=== PATIENT | female | born 1985 | race Caucasian/White ===

== ENCOUNTER 2019-01-23 05:32 | Day surgery (SDC) | payer MEDICAID ==
[2019-01-23] VITALS (13 sets, daily range): BP systolic 97–146; BP diastolic 52–76; PULSE 56–77; RESP 13–21; Ht 165.1 cm; Wt 77.3 kg
[~2019-01-23] VITALS: Ht 165.1 cm; Wt 77.3 kg
--- NOTE | 2019-01-23 07:30 | PREAC ---
Date/Time of Note Date/Time of Note DATE: 01/23/19 TIME: 07:29 Anesthesia Eval and Record Evaluation Time Pre-Procedure Interview DATE: 01/23/19 TIME: 07:29 Age 33 Sex female NPO: 8 hrs Preoperative diagnosis Request Of BTL Planned procedure Laparoscopic BTL Past Medical History Past Medical History: None Surgery & Anesthesia Issues No known issue Meds Anticoagulation: No Beta Og within 24 hr: No Reason Beta Og not given: Pt. not on B-Og No Active Prescriptions or Reported Meds Meds reviewed: Yes Allergies Coded Allergies: No Known Allergy (Unverified , 01/23/19) Allergies Reviewed: Yes Labs/Studies Labs Reviewed: Reviewed by anesthesiologist test: Negative Studies: ECG (n/a), CXR (n./a) Pre-procedure Exam Last vitals Vital Signs Date Temp Pulse Resp B/P (MAP) Pulse Ox O2 O2 Flow FiO2 Time Delivery Rate 01/23/19 97.4 60 18 117/76 97 Room Air 07:19 (90) Airway: Adequate mouth opening, Adequate thyromental dist Mallampati: Mallampati II Teeth: Normal Lung: Normal Heart: Abnormal ASA Physical Status ASA physical status: 1 Emergency: None Planned Anesthetic General/MAC: ETT Nerve block: TAP (bilateral) Planned Pain Management Single shot nerve block, Parenteral pain med Pre-operative Attestations Prior to commencing anesthesia and surgery, the patient was re-evaluated, there was verification of: *The patient's identity *The results of appropriate recent lab work and preoperative vital signs *The above evaluation not changing prior to induction *Anesthetic plan, risk benefits, alternative and complications discussed with patient/family; questions answered; patient/family understands, accepts and wishes to proceed. WILLIAM ARCE MD Jan 23, 2019 07:30
[2019-01-23] MEDS ORDERED: FENTAnyl 50 MCG/ML VIAL ONE (07:35)
[2019-01-23] MEDS ORDERED: PROPOFOL 20 ML ONE (07:35)
[2019-01-23] MEDS ORDERED: ROCURONIUM 50 MG INJ ONE (07:35)
[2019-01-23] MEDS ORDERED: MIDAZOLAM 1 MG/ML 2 ML INJ ONE (07:35)
[2019-01-23] MEDS ORDERED: ROPIVACAINE 0.5 % 30 ML VIAL ONE (07:35)
[2019-01-23] MEDS ORDERED: METOCLOPRAMIDE 10 MG INJ ONE (08:23)
[2019-01-23] MEDS ORDERED: DEXAMETHASONE 4 MG/ML 5 ML INJ ONE (08:23)
[2019-01-23] MEDS ORDERED: ONDANSETRON 4 MG INJ ONE (08:23)
[2019-01-23] MEDS ORDERED: KETOROLAC 30 MG INJ ONE (08:23)
[2019-01-23] MEDS ORDERED: NEOSTIGMINE 3 MG/3 ML SYRINGE ONE (08:31)
[2019-01-23] MEDS ORDERED: GLYCOPYRROLATE 0.4 MG INJ ONE (08:31)
--- NOTE | 2019-01-23 08:36 | OPPN ---
Date/Time of Note Date/Time of Note DATE: 01/23/19 TIME: 08:34 Operative Report Planned Procedure Procedure date Jan 23, 2019 Procedure(s) laparoscopic bilateral tubal fulguration Performed by see signature line Specialty Sales Consultant: EDI AC MD 2nd Specialty Sales Consultant none Pre-procedure diagnosis multiparity, desire permanent sterilization [id number] Anesthesia Type: Ulimr1w general Post-Procedure Post-procedure diagnosis same Findings normal uterus tubes and ovaries Estimated Blood Loss: minimal Specimen(s) none Grafts/Implant(s) none Complication(s) none EDI AC MD Jan 23, 2019 08:35
--- NOTE | 2019-01-23 08:39 | PD.PPDC ---
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
--- NOTE | 2019-01-23 08:44 | PAC ---
Date/Time of Note Date/Time of Note DATE: 01/23/19 TIME: 08:44 Post-Anesthesia Notes Post-Anesthesia Note Last documented vital signs Vital Signs Date Temp Pulse Resp B/P (MAP) Pulse Ox O2 O2 Flow FiO2 Time Delivery Rate 01/23/19 97.4 60 18 117/76 97 Room Air 09:00 (90) Activity: WNL Respiratory function: WNL Cardiovascular function: WNL Mental status: Baseline Pain reasonably controlled: Yes Hydration appropriate: Yes Nausea/Vomiting absent: Yes WILLIAM ARCE MD Jan 23, 2019 08:44
[2019-01-23] MEDS: FENTAnyl 50 MCG/ML VIAL IV PRN ×2 (08:57→09:07)
[2019-01-23] MEDS ORDERED: FENTAnyl 50 MCG/ML VIAL IV PRN (09:00)
[2019-01-23] MEDS ORDERED: ONDANSETRON 4 MG INJ IV PRN (09:00)
[2019-01-23] MEDS ORDERED: OXYCODONE/ACETAMINOPHEN (5/325) TAB PO PRN (09:00)
[2019-01-23] MEDS ORDERED: METOCLOPRAMIDE 10 MG INJ IV PRN (09:00)
[2019-01-23] MEDS ORDERED: EPHEDrine 25 MG/5 ML SYG IV PRN (09:00)
[2019-01-23] MEDS ORDERED: HYDROmorphONE 1 MG/5 ML IV SYRINGE IV PRN ×2 (09:00)
[2019-01-23] MEDS ORDERED: MEPERIDINE 25 MG INJ IV PRN (09:00)
[2019-01-23] MEDS ORDERED: DIPHENHYDRAMINE 50 MG INJ IV PRN (09:00)
--- NOTE | 2019-01-23 18:03 | OPR ---
DATE OF OPERATION: 01/23/2019 PRIMARY DIAGNOSIS: Multiparity, desires permanent surgical sterilization. POSTOPERATIVE DIAGNOSIS: Multiparity, desires permanent surgical sterilization. PROCEDURE: Laparoscopic bilateral tubal fulguration. SURGEON: Edi Gallegos MD DIRECTOR TARGETED MARKETING: None. ANESTHESIA: General. COMPLICATIONS: None. ESTIMATED BLOOD LOSS: Minimal. FINDINGS: Normal uterus, tubes and ovaries. DESCRIPTION OF PROCEDURE: After explaining the risks, benefits and alternatives, the patient and con sented and signed in chart. The patient was taken to the operating room where general anesthesia was obtained without difficulty. The patient was then examined under anesthesia and found to have a sma ll anteverted uterus with normal adnexa. She was then placed in a dorsal lithotomy position and prep ared and draped in a sterile fashion. A heavy weighted speculum was then placed in the patient's vag kitty and the anterior lip of the cervix was grasped with a single tooth tenaculum. A HUMI uterine man ipulator was then advanced into the uterus to provide means to manipulate the uterus. The speculum w as then removed from the vagina. Attention was then turned to the patient's abdomen where a 5 mm ski n incision was then made in the umbilical fold. The Veress needle was carefully introduced into the peritoneal cavity at 45-degree angle tenting the abdominal wall. Intra-abdominal placement was confi rmed by water-filled syringe and drop in intra-abdominal pressure with insufflation of CO2 gas. The trocar and sleeve were then advanced without difficulty into the abdomen where the intra-abdominal pl acement was confirmed by laparoscope. Pneumoperitoneum was obtained with 4 liters of CO2 gas and a 5 mm trocar and sleeve were then advanced without difficulty in the abdomen and the intra-abdominal pl acement was confirmed by laparoscope. A second skin incision was made 2 cm above the symphysis pubis in the midline. The second trocar and sleeve were then advanced under direct visualization. A surv ey of the patient's pelvis revealed normal anatomy. The right fallopian tube was fulgurated at multi ple areas of the isthmus and ampullary regions with good blanching. Similarly, the left fallopian tu be was fulgurated. There was no bleeding in the mesosalpinx. The instruments were then removed from the patient's abdomen and the incision was repaired with 3-0 Vicryl. The HUMI was then removed from the patient's vagina with no bleeding noted from the cervix. The patient tolerated the procedure we ll. Sponge, lap and needle counts were correct. The patient was taken to recovery room in stable co ndition. Dictated By: EDI ARTEAGA/STEPHEN Conf#: [id number] DID#: [id number]
== END 2019-01-23 11:15 | disposition home or self-care (01) ==
LOC: SDS 05:32
PROVIDERS: ATTEND Obstetrics & Gynecology
DX: Z30.2 Encounter for sterilization (principal)
CPT/HCPCS: 58670; 84702; 85025; 86850; 86900; 86901; J1100; J1885; J2250; J2405; J2710; J2765; J2795; J3010; Z7512; Z7610